=== PATIENT | female | born 1945 | race Caucasian/White ===

== ENCOUNTER 2018-10-07 16:16 | Emergency (ER) | payer MEDICARE, OTHER ==
[~2018-10-07] VITALS: Ht 157.5 cm; Wt 60.8 kg
[2018-10-07] MEDS ORDERED: HYDROCHLOROTHIA25 M2 PO (16:33)
[2018-10-07] MEDS ORDERED: PRILOSEC OTC20 MG PO (16:33)
[2018-10-07] MEDS ORDERED: LISINOPRIL5 MG PO (16:33)
[2018-10-07] MEDS ORDERED: AMITRIPTYLINE H25 M3 PO (16:34)
[2018-10-07] MEDS ORDERED: LIPITOR80 MG PO (16:34)
[2018-10-07] MEDS ORDERED: ASPIRIN325 PO (16:34)
[2018-10-07 16:35] LABS: URINE BILIRUBIN NEGATIVE (Negative); URINE BLOOD 2+ (Negative); URINE CLARITY CLEAR; URINE COLOR YELLOW; URINE GLUCOSE-RANDOM NEGATIVE (Negative); URINE KETONES NEGATIVE (Negative); URINE LEUKOCYTES-REFLEX NEGATIVE (Negative); URINE NITRITE-REFLEX NEGATIVE (Negative); URINE PROTEIN NEGATIVE (Negative); URINE UROBILINOGEN 0.2 E.U./dl (0.2-1.0)
[2018-10-07] MEDS ORDERED: CARVEDILOL12.5 MG PO (16:35)
[2018-10-07 16:41] LABS: ABSOLUTE BASOPHILS 0.1 thou/uL (0.0-0.2); ABSOLUTE EOSINOPHILS 0.1 thou/uL (0.0-0.7); ABSOLUTE LYMPHOCYTES 5.6 thou/uL (0.8-5.3); ABSOLUTE MONOCYTES 0.7 thou/uL (0.0-1.2); ABSOLUTE NEUTROPHILS 7.1 thou/uL (1.6-8.1); BASOPHILS 0.7 %; EOSINOPHILS 0.6 %; HEMATOCRIT 38.3 % (37.0-47.0); HEMOGLOBIN 12.9 gm/dL (12.0-15.0); LYMPHOCYTES 41.2 %; MCHC 33.8 g/dL (28.0-37.0); MCV 88.8 fL (80.0-100.0); MONOCYTES 5.2 %; NUCLEATED RBCS 0 /100WBC; PLATELET COUNT* 210 thou/uL (150-400); POLYS 52.3 %; RBC 4.31 mil/uL (4.20-5.00); RDW-CV 13.5 % (10.5-14.5); WBC 13.5 thou/uL (4.0-11.0)
[2018-10-07 16:50] LABS: ANION GAP 10 mmol/L (7-16); BUN 12 mg/dL (7-18); CALCIUM 8.7 mg/dL (8.5-10.1); CHLORIDE 94 mmol/L (98-107); CO2 29 mmol/L (21-32); CREATININE 1.1 mg/dL (0.6-1.3); GLUCOSE 135 mg/dL (70-99); SODIUM 133 mmol/L (136-145)
[2018-10-07 16:52] LABS: BACTERIA-REFLEX 1-9 Few /HPF (None Seen); CASTS None Seen /LPF (None Seen); CRYSTALS None Seen /LPF (None Seen); SQUAMOUS 0-3 Few /LPF (0-3); URINE RBC 0-2 Rare /HPF (0-2); URINE WBC-REFLEX 0-5 Rare /HPF (0-5)
[2018-10-07 17:01] LABS: ALBUMIN 3.9 g/dL (3.4-5.0); ALKALINE PHOSPHATASE 57 U/L (46-116); LIPASE 133 U/L (73-393); SGOT 19 U/L (15-37); SGPT 25 U/L (30-65); TOTAL BILIRUBIN 0.5 mg/dL (<0.1-1.0); TOTAL PROTEIN 7.7 g/dL (6.4-8.2); TROPONIN-I LEVEL <0.06 ng/mL (<0.06)
[2018-10-07 17:03] LABS: POTASSIUM 2.9 mmol/L (3.5-5.1)
[2018-10-07] MEDS ORDERED: CIPROFLOXACIN500 M1 PO (18:01)
[2018-10-07 18:11] VITALS: BP 141/72
--- NOTE | 2018-10-08 11:04 | EKG ---
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
== END 2018-10-07 18:11 | disposition home or self-care (01) ==
LOC: M.ERS 16:16
PROVIDERS: Family Medicine
DX: E87.6 Hypokalemia (principal); R14.0 Abdominal distension (gaseous); R10.9 Unspecified abdominal pain; R11.2 Nausea with vomiting, unspecified; E11.9 Type 2 diabetes mellitus without complications; I10 Essential (primary) hypertension; Z90.49 Acquired absence of other specified parts of digestive tract; Z88.0 Allergy status to penicillin